=== PATIENT | male | born 1935 | race African-American/Black ===

== ENCOUNTER 2021-12-12 15:43 | Emergency (ER) | payer OTHER ==
[~2021-12-12] VITALS: Ht 175.3 cm; Wt 70.0 kg
[2021-12-12 17:01] LABS: BASOPHILS % 0.2 % (0.0-2.0); EOSINOPHILS % 1.8 % (0.0-5.0); HEMATOCRIT. 32.8 % (42.0-52.0); HEMOGLOBIN. 11.2 g/dL (14.0-18.0); LYMPHOCYTES % 22.8 % (20.0-50.0); MEAN CORPUSCULAR HEMOGLOBIN 30.9 pg (28.0-32.0); MEAN CORPUSCULAR VOLUME 90.4 fL (80.0-94.0); MEAN PLATELET VOLUME 7.6 fl (7.4-10.4); MONOCYTES % 9.7 % (2.0-8.0); NEUTROPHILS % 65.5 % (40.0-76.0); PLATELET 199 x1000/uL (130-400); RED BLOOD CELL COUNT 3.62 mill/uL (4.7-6.1); RED CELL DISTRIBUTION WIDTH 14.2 % (11.6-14.6)
[2021-12-12 17:06] LABS: CHLORIDE 103 mEq/L (98-107)
[2021-12-12 17:14] LABS: ETHANOL BLOOD < 10 mg/dL
[2021-12-12] MEDS ORDERED: NITROGLYCERIN 0.4MG TABLET SL SL PRN (21:15)
[2021-12-12] MEDS ORDERED: ZOLPIDEM TARTRATE 5MG TABLET PO PRN (21:15)
[2021-12-12] MEDS ORDERED: ASPIRIN 81MG TABLET PO ONE (22:15)
[2021-12-12 23:23] LABS: T4 FREE 1.17 ng/dL (0.76-1.46)
[2021-12-12 23:43] LABS: VITAMIN B12 SERUM > 2000.0 pg/mL (211-911)
[2021-12-12 23:52] VITALS: BP 120/64
[2021-12-13] MEDS ORDERED: CHOLECALCIFEROL (D3) 1000 UNIT TABLET PO SCH (09:00)
[2021-12-13] MEDS ORDERED: ASCORBIC ACID 500 MG TABLET PO SCH (09:00)
[2021-12-13] MEDS ORDERED: ASPIRIN 325MG EC TABLET PO SCH (09:00)
[2021-12-13] MEDS ORDERED: FAMOTIDINE 20MG TABLET PO SCH (09:00)
[2021-12-13] MEDS ORDERED: ZINC SULFATE 220 MG ( 50 ) CAPSULE PO SCH (09:00)
== END 2021-12-13 00:44 | disposition short-term general hospital (02) ==
LOC: ER 15:43 → CANBEDREQ 12-13 08:28
DX: G93.40 Encephalopathy, unspecified (principal); D64.9 Anemia, unspecified; N17.9 Acute kidney failure, unspecified; E11.9 Type 2 diabetes mellitus without complications; I10 Essential (primary) hypertension; Z86.73 Personal history of transient ischemic attack (TIA), and cerebral infarction without residual deficits; Z20.822 Contact with and (suspected) exposure to COVID-19
CPT/HCPCS: 36415; 70450; 70496; 70498; 71045; 76770; 80053; 80320; 82607; 82746; 83540; 83550; 83605; 84145; 84439; 84443; 85025; 87040; 87426; 93005; 99291; C9803; G0480

== ENCOUNTER 2024-02-11 19:13 | Emergency (ER) | payer OTHER, MEDICAID ==
[~2024-02-11] VITALS: Ht 170.2 cm; Wt 75.0 kg
[2024-02-11 19:19] VITALS: O2SAT 100
[2024-02-11 20:34] LABS: DIFFERENTIAL COMMENT 1; HEMATOCRIT. 38.7 % (42.0-52.0); HEMOGLOBIN. 12.7 g/dL (14.0-18.0); MEAN CORPUSCULAR HEMOGLOBIN 29.7 pg (28.0-32.0); MEAN CORPUSCULAR HGB CONC 32.9 g/dL (31.0-37.0); MEAN CORPUSCULAR VOLUME 90.3 fL (80.0-94.0); PLATELET 138 x1000/uL (130-400); RED BLOOD CELL COUNT 4.29 mill/uL (4.7-6.1); RED CELL DISTRIBUTION WIDTH 15.7 % (11.6-14.6); WHITE BLOOD COUNT 8.3 x1000/uL (4.5-11.0)
[2024-02-11 20:38] LABS: CHLORIDE 108 mEq/L (98-107); POTASSIUM 4.1 mEq/L (3.5-5.1); SODIUM 141 mEq/L (136-145)
[2024-02-11 20:39] LABS: CARBON DIOXIDE 26 mEq/L (21-32)
[2024-02-11 20:40] LABS: CALCIUM 9.8 mg/dL (8.7-10.4)
[2024-02-11 20:43] LABS: INR 1.2
[2024-02-11 20:44] LABS: CREATININE 1.6 mg/dL (0.6-1.3); GLUCOSE 142 mg/dL (70-105); UREA NITROGEN BLOOD 30 mg/dL (9-23)
[2024-02-11 20:55] LABS: TROPONIN I HIGH SENSITIVITY 73 ng/L (3.0-53)
[2024-02-11 21:09] LABS: ANISOCYTOSIS 1+; PLATELET ESTIMATE NORMAL
[2024-02-11 22:44] LABS: CLARITY URINE CLEAR (CLEAR); COLOR URINE YELLOW (YELLOW); GLUCOSE URINE NEGATIVE (NEGATIVE); KETONES URINE NEGATIVE (NEGATIVE); LEUKOCYTE ESTERASE URINE 2+ (NEGATIVE); NITRITE URINE POSITIVE (NEGATIVE); OCCULT BLOOD URINE 2+ (NEGATIVE); PH URINE 7.5 (4.5-8.0); PROTEIN URINE 2+ (NEGATIVE); SPECIFIC GRAVITY URINE 1.021 (1.005-1.030)
[2024-02-11 22:59] LABS: SQUAMOUS EPITHELIAL CELL URINE FEW /lpf (RARE/1+)
[2024-02-11 23:00] LABS: BACTERIA URINE 2+
[2024-02-11] MEDS: SODIUM CHLORIDE 0.9% 1,000 ML IV ONE (23:16)
[2024-02-11] MEDS: CEFTRIAXONE 1GM/50ML 50 ML IV NR (23:16)
[2024-02-12 06:30] VITALS: BP 118/76; PULSE 80; RESP 22; TEMP 37.00296; O2SAT 96
== END 2024-02-12 07:10 | disposition short-term general hospital (02) ==
LOC: ER 19:13 → EDBEDREQ 22:49 → EDBEDREQTM 02-12 02:53 → EDBEDREQ 02-12 02:53 → ER 02-12 07:10
DX: G93.40 Encephalopathy, unspecified (principal); R53.1 Weakness; I12.9 Hypertensive chronic kidney disease with stage 1 through stage 4 chronic kidney disease, or unspecified chronic kidney disease; N39.0 Urinary tract infection, site not specified; N18.9 Chronic kidney disease, unspecified; R41.0 Disorientation, unspecified; Z86.73 Personal history of transient ischemic attack (TIA), and cerebral infarction without residual deficits
CPT/HCPCS: 99291; 96365; 80048; 81003; 83605; 85025; 85610; 84484; 36415; 71045; 93005; 74176; J0696

== ENCOUNTER 2024-08-22 23:25 | Emergency (ER) | payer OTHER, MEDICAID ==
[~2024-08-22] VITALS: Ht 167.6 cm; Wt 73.0 kg
[2024-08-22 23:35] VITALS: O2SAT 96
[2024-08-23 00:04] LABS: BASOPHILS % 0.7 % (0.0-2.0); EOSINOPHILS % 0.9 % (0.0-5.0); HEMATOCRIT. 35.8 % (42.0-52.0); LYMPHOCYTES % 11.7 % (20.0-50.0); MEAN CORPUSCULAR HEMOGLOBIN 30.2 pg (28.0-32.0); MEAN CORPUSCULAR HGB CONC 33.6 g/dL (31.0-37.0); MONOCYTES % 7.7 % (2.0-8.0); PLATELET 173 x1000/uL (130-400); RED BLOOD CELL COUNT 3.98 mill/uL (4.7-6.1); RED CELL DISTRIBUTION WIDTH 15.1 % (11.6-14.6); WHITE BLOOD COUNT 7.8 x1000/uL (4.5-11.0)
[2024-08-23 00:16] LABS: PROTHROMBIN TIME 10.8 sec (9.6-11.0)
[2024-08-23 00:22] LABS: CHLORIDE 107 mEq/L (98-107); POTASSIUM 4.1 mEq/L (3.5-5.1); SODIUM 138 mEq/L (136-145)
[2024-08-23 00:23] LABS: CALCIUM 9.6 mg/dL (8.7-10.4); CARBON DIOXIDE 28 mEq/L (21-32)
[2024-08-23 00:28] LABS: CREATININE 1.4 mg/dL (0.6-1.3); GLUCOSE 157 mg/dL (70-105); UREA NITROGEN BLOOD 20 mg/dL (9-23)
[2024-08-23 00:29] LABS: TROPONIN I HIGH SENSITIVITY 40 ng/L (3.0-53)
[2024-08-23] MEDS ORDERED: ASPIRIN 325MG EC TABLET PO ONE (05:15)
[2024-08-23 06:42] VITALS: BP 148/64; PULSE 73; RESP 20; O2SAT 97
== END 2024-08-23 07:26 | disposition short-term general hospital (02) ==
LOC: ER 23:25 → EDBEDREQ 08-23 02:32 → ER 08-23 07:26
DX: R55 Syncope and collapse (principal); I10 Essential (primary) hypertension; E11.9 Type 2 diabetes mellitus without complications; F03.90 Unspecified dementia, unspecified severity, without behavioral disturbance, psychotic disturbance, mood disturbance, and anxiety; Z86.73 Personal history of transient ischemic attack (TIA), and cerebral infarction without residual deficits
CPT/HCPCS: 36415; 71045; 80048; 83880; 84484; 85025; 93005; 99285

== ENCOUNTER 2025-02-01 10:15 | Emergency (ER) | payer OTHER, MEDICAID ==
[~2025-02-01] VITALS: Ht 162.6 cm; Wt 54.0 kg
[2025-02-01 10:16] VITALS: O2SAT 99
[2025-02-01 11:20] LABS: BASOPHILS % 0.3 % (0.0-2.0); EOSINOPHILS % 2.6 % (0.0-5.0); HEMATOCRIT. 34.5 % (42.0-52.0); HEMOGLOBIN. 11.6 g/dL (14.0-18.0); LYMPHOCYTES % 26.9 % (20.0-50.0); MEAN PLATELET VOLUME 7.7 fl (7.4-10.4); MONOCYTES % 9.8 % (2.0-8.0); NEUTROPHILS % 60.4 % (40.0-76.0); PLATELET 197 x1000/uL (130-400); RED BLOOD CELL COUNT 3.82 mill/uL (4.7-6.1); RED CELL DISTRIBUTION WIDTH 16.4 % (11.6-14.6)
[2025-02-01] MEDS: SODIUM CHLORIDE 0.9% 1,000 ML IV ONE (11:30)
[2025-02-01 11:37] LABS: CREATININE 1.3 mg/dL (0.6-1.3)
[2025-02-01 11:38] LABS: UREA NITROGEN BLOOD 12 mg/dL (9-23)
[2025-02-01 11:39] LABS: ASPARTATE AMINOTRANSFERASE 28 IU/L (<34); TROPONIN I HIGH SENSITIVITY 49 ng/L (3.0-53)
[2025-02-01 11:40] LABS: BILIRUBIN DIRECT 0.1 mg/dL (<=3.0); BILIRUBIN TOTAL 0.4 mg/dL (0.1-1.0); PROTEIN TOTAL 7.0 g/dL (6.0-8.3)
[2025-02-01] MEDS: MAGNESIUM 2 G PREMIX 50 ML IV ONE (13:58)
[2025-02-01 15:56] VITALS: BP 130/70; PULSE 84; RESP 20; TEMP 37.1; O2SAT 99
== END 2025-02-01 16:02 | disposition short-term general hospital (02) ==
LOC: ER 10:27
DX: R55 Syncope and collapse (principal); I10 Essential (primary) hypertension; Z86.73 Personal history of transient ischemic attack (TIA), and cerebral infarction without residual deficits
CPT/HCPCS: 99285; 96365; 70450; 96361; 71045; 80076; 80048; 83735; 85025; 84484; 36415; 93005; J3475; J7030